=== PATIENT | male | born 1985 | race Two or more races ===

== ENCOUNTER 2017-01-07 01:42 | Emergency (ER) | payer MEDICAID ==
[~2017-01-07] VITALS: Ht 157.5 cm; Wt 65.8 kg
[2017-01-07] VITALS (10 sets, daily range): BP systolic 78–150; BP diastolic 33–88
[~2017-01-07 01:42] MED LIST: NKM
[2017-01-07] MEDS ORDERED: Silver Nitrate Stick TOPIC ONE (01:45)
[2017-01-07] MEDS ORDERED: Lidocaine 1% 10mg/ml/Epi 0.005mg/ml 30ml vial INJ ONE (01:45)
[2017-01-07 02:16] LABS: BASOPHILS % (AUTO) 1.6 % (0.0-2.0); EOSINOPHILS % (AUTO) 0.9 % (0.0-3.0); LYMPHOCYTES % (AUTO) 43.7 % (20.0-45.0); MEAN CORPUSCULAR HEMOGLOBIN 23.8 PG (27.0-31.0); MEAN CORPUSCULAR HGB CONC 30.5 G/DL (32.0-36.0); MEAN CORPUSCULAR VOLUME 78 FL (80-99); MONOCYTES % (AUTO) 10.9 % (1.0-10.0); NEUTROPHILS % (AUTO) 42.8 % (45.0-75.0); PLATELET COUNT 241 K/UL (150-450); RED BLOOD COUNT 3.51 M/UL (4.70-6.10); RED CELL DISTRIBUTION WIDTH 14.9 % (11.6-14.8); WHITE BLOOD COUNT 4.5 K/UL (4.8-10.8)
[2017-01-07 02:29] LABS: PROTHROMBIN TIME 10.7 SEC (9.30-11.50)
[2017-01-07 02:33] LABS: ALANINE AMINOTRANSFERASE 85 U/L (3-41); ALBUMIN/GLOBULIN RATIO 0.8 (1.0-2.7); ANION GAP 16 (5-15); ASPARTATE AMINO TRANSFERASE 172 U/L (5-40); CALCIUM 8.7 mg/dL (8.6-10.2); CARBON DIOXIDE 23 mEQ/L (20-30); CHLORIDE 102 mEQ/L (98-107); CREATININE 0.6 mg/dL (0.7-1.2); GLOMERULAR FILTRATION RATE > 60 mL/min (>60); HEMOLYSIS 0; POTASSIUM 3.6 mEQ/L (3.4-4.9); SODIUM 141 mEQ/L (135-145); TOTAL PROTEIN 8.8 g/dL (6.6-8.7)
--- NOTE | 2017-01-07 03:56 | Emergency Room Report ---
History of Present Illness General Chief Complaint: Nosebleed Source: Patient (Linden Augustin M.D.) Present Illness HPI Patient presents with several hours of R sided nose bleed. No trauma. Never has happened before. States lost "a lot" of blood. Feels weak when standing. Slight headache. Admits to alcohol 3 times a week. Had 4 beers tonight. Denies drugs. No trauma. No h/o HTN, cirrhosis, bleeding problems, easy bruising, rashes, vomit blood or melena. Denies problems with alcohol, seizures, gastritis. States only occasional ingestion. No fever. No cough. No diarrhea. No rashes. (Linden Augustin M.D.) Allergies: Coded Allergies: No Known Allergies (Unverified , 01/07/17) Patient History Past Medical History: see triage record Social History: Reports: alcohol use, Denies: drug use - see tox Social History Narrative at home Reviewed Nursing Documentation: PMH: Agreed, PSxH: Agreed (Linden Augustin M.D.) Nursing Documentation-PMH Past Medical History: No Stated History (Linden Augustin M.D.) Review of Systems All Other Systems: negative except mentioned in HPI (Linden Augustin M.D.) Physical Exam Vital Signs Date Time Temp Pulse Resp B/P Pulse Ox O2 Delivery O2 Flow Rate FiO2 01/07/17 01:34 105 18 153/91 98 Room Air 01/07/17 01:50 98.6 Sp02 EP Interpretation: reviewed, normal General Appearance: well appearing, no apparent distress, GCS 15 Head: normocephalic Eyes: bilateral eye PERRL, bilateral eye Scleral Injection ENT: other - bleeding R nose. No septal erosions. Source of bleeding not identified. Rhinophyma Neck: supple Respiratory: lungs clear, normal breath sounds Cardiovascular #1: regular rate, rhythm Cardiovascular #2: 2+ radial (R) Gastrointestinal: normal inspection, normal bowel sounds, non tender, no mass, non-distended Musculoskeletal: back normal, gait/station normal, normal range of motion Neurologic: alert, oriented x3 Psychiatric: depressed affect, other - not forthcoming with history Skin: normal inspection, warm/dry (Linden Augustin M.D.) Procedures Additional Procedure Procedure Narrative epistaxis control by me - Initially packed with lido and epi. Unable to stop bleeding. Rhinorocket inserted with ease and inflated. Bleeding controlled. Tolerated well. (Linden Augustin M.D.) Medical Decision Making Diagnostic Impression: Primary Impression: Severe epistaxis Additional Impressions: Anemia Qualified Codes: D62 - Acute posthemorrhagic anemia Alcohol intoxication Qualified Codes: F10.929 - Alcohol use, unspecified with intoxication, unspecified Cocaine abuse ER Course Patient with anterior epistaxis. Ddx: coagulopathy, vasculitis, trauma amongst othes. Needs labs and epistatxis control. Will pack with lido/epi on cotton. Initial packing not stop bleed. Rhinorocket inserted. Tolerated well. Bleeding controlled. Initial labs with anemia with microcytic indicies. Suggestive of more chronic blood loss. H/H minimally lower. However the patient was orthostatic and hypotensive when he sat and unable to stand. Fluids and blood ordered. Admit med. Discussed with Dr. Hartmann. States as bleeding controlled with Rhinorocket, patient stable for outpatient follow up and suggests [facility]. As unable to arrange ENT consultation, discussed with Dr. Robertson who will transfuse patient in ED and re-assess. Signed out to Dr. Robertson. Laboratory Tests Test 01/07/17 02:00 01/07/17 04:11 White Blood Count 4.5 K/UL (4.8-10.8) L 4.3 K/UL (4.8-10.8) L Red Blood Count 3.51 M/UL (4.70-6.10) L 3.32 M/UL (4.70-6.10) L Hemoglobin 8.3 G/DL (14.2-18.0) L 7.9 G/DL (14.2-18.0) L Hematocrit 27.3 % (42.0-52.0) L 25.9 % (42.0-52.0) L Mean Corpuscular Volume 78 FL (80-99) L 78 FL (80-99) L Mean Corpuscular Hemoglobin 23.8 PG (27.0-31.0) L 23.9 PG (27.0-31.0) L Mean Corpuscular Hemoglobin Concent 30.5 G/DL (32.0-36.0) L 30.7 G/DL (32.0-36.0) L Red Cell Distribution Width 14.9 % (11.6-14.8) H 14.8 % (11.6-14.8) Platelet Count 241 K/UL (150-450) 235 K/UL (150-450) Mean Platelet Volume 6.0 FL (6.5-10.1) L 6.3 FL (6.5-10.1) L Neutrophils (%) (Auto) 42.8 % (45.0-75.0) L % (45.0-75.0) Lymphocytes (%) (Auto) 43.7 % (20.0-45.0) % (20.0-45.0) Monocytes (%) (Auto) 10.9 % (1.0-10.0) H % (1.0-10.0) Eosinophils (%) (Auto) 0.9 % (0.0-3.0) % (0.0-3.0) Basophils (%) (Auto) 1.6 % (0.0-2.0) % (0.0-2.0) Prothrombin Time 10.7 SEC (9.30-11.50) Prothrombin Time INR 1.0 (0.9-1.1) PTT 27 SEC (23-33) Sodium Level 141 mEQ/L (135-145) Potassium Level 3.6 mEQ/L (3.4-4.9) Chloride Level 102 mEQ/L (98-107) Carbon Dioxide Level 23 mEQ/L (20-30) Anion Gap 16 (5-15) H Blood Urea Nitrogen 4 mg/dL (7-23) L Creatinine 0.6 mg/dL (0.7-1.2) L Estimate Glomerular Filtration Rate > 60 mL/min (>60) Glucose Level 107 mg/dL (74-106) H Calcium Level 8.7 mg/dL (8.6-10.2) Total Bilirubin 0.2 mg/dL (0.0-1.2) Aspartate Amino Transferase (AST) 172 U/L (5-40) H Alanine Aminotransferase (ALT) 85 U/L (3-41) H Alkaline Phosphatase 120 U/L (40-129) Total Protein 8.8 g/dL (6.6-8.7) H Albumin 4.1 g/dL (3.5-5.2) Globulin 4.7 g/dL Albumin/Globulin Ratio 0.8 (1.0-2.7) L Urine Opiates Screen Negative (NEGATIVE) Urine Barbiturates Screen Negative (NEGATIVE) Phencyclidine (PCP) Screen Negative (NEGATIVE) Urine Amphetamines Screen Negative (NEGATIVE) Urine Benzodiazepines Screen Negative (NEGATIVE) Urine Cocaine Screen Positive (NEGATIVE) H Urine Marijuana (THC) Screen Negative (NEGATIVE) Serum Alcohol 360 mg/dL Neutrophils % (Manual) Pending Lymphocytes % (Manual) Pending Platelet Estimate Pending Platelet Morphology Pending (Linden Augustin M.D.) ER Course Patient was advised risk and benefits of blood transfusion and indicated understanding and want proceed with transfusion. Patient was given blood transfusion. Patient had no recurrence of bleeding. The patient was noted to have improvement in his mental status as alcohol intoxication improved. The patient was noted to have improved hemoglobin a repeat testing. Patient showed no active bleeding during time in emergency department after a nasal packing was performed. Patient was given IV Zofran for vomiting the patient was advised to stop using cocaine and stop using excessive amounts of alcohol. The patient was advised to return for packing removal in one day Labs Test 01/07/17 02:00 01/07/17 04:11 01/07/17 13:40 Prothrombin Time 10.7 SEC (9.30-11.50) Prothromb Time International Ratio 1.0 (0.9-1.1) Activated Partial Thromboplast Time 27 SEC (23-33) Sodium Level 141 mEQ/L (135-145) Potassium Level 3.6 mEQ/L (3.4-4.9) Chloride Level 102 mEQ/L (98-107) Carbon Dioxide Level 23 mEQ/L (20-30) Anion Gap 16 (5-15) Blood Urea Nitrogen 4 mg/dL (7-23) Creatinine 0.6 mg/dL (0.7-1.2) Estimat Glomerular Filtration Rate > 60 mL/min (>60) Glucose Level 107 mg/dL (74-106) Calcium Level 8.7 mg/dL (8.6-10.2) Total Bilirubin 0.2 mg/dL (0.0-1.2) Aspartate Amino Transf (AST/SGOT) 172 U/L (5-40) Alanine Aminotransferase (ALT/SGPT) 85 U/L (3-41) Alkaline Phosphatase 120 U/L (40-129) Total Protein 8.8 g/dL (6.6-8.7) Albumin 4.1 g/dL (3.5-5.2) Globulin 4.7 g/dL Albumin/Globulin Ratio 0.8 (1.0-2.7) Urine Opiates Screen Negative (NEGATIVE) Urine Barbiturates Screen Negative (NEGATIVE) Phencyclidine (PCP) Screen Negative (NEGATIVE) Urine Amphetamines Screen Negative (NEGATIVE) Urine Benzodiazepines Screen Negative (NEGATIVE) Urine Cocaine Screen Positive (NEGATIVE) Urine Marijuana (THC) Screen Negative (NEGATIVE) Serum Alcohol 360 mg/dL Differential Total Cells Counted 100 Neutrophils % (Manual) 53 % (45-75) Lymphocytes % (Manual) 41 % (20-45) Monocytes % (Manual) 4 % (1-10) Eosinophils % (Manual) 1 % (0-3) Basophils % (Manual) 1 % (0-2) Band Neutrophils 0 % (0-8) Platelet Estimate Adequate Platelet Morphology Normal Hypochromasia 3+ Anisocytosis 1+ Microcytosis 1+ White Blood Count 4.6 K/UL (4.8-10.8) Red Blood Count 3.80 M/UL (4.70-6.10) Hemoglobin 9.5 G/DL (14.2-18.0) Hematocrit 30.8 % (42.0-52.0) Mean Corpuscular Volume 81 FL (80-99) Mean Corpuscular Hemoglobin 24.9 PG (27.0-31.0) Mean Corpuscular Hemoglobin Concent 30.8 G/DL (32.0-36.0) Red Cell Distribution Width 15.1 % (11.6-14.8) Platelet Count 188 K/UL (150-450) Mean Platelet Volume 6.1 FL (6.5-10.1) Neutrophils (%) (Auto) 68.2 % (45.0-75.0) Lymphocytes (%) (Auto) 18.0 % (20.0-45.0) Monocytes (%) (Auto) 11.4 % (1.0-10.0) Eosinophils (%) (Auto) 0.7 % (0.0-3.0) Basophils (%) (Auto) 1.7 % (0.0-2.0) (Fady Robertson) EKG Diagnostic Results Rate: normal Rhythm: NSR ST Segments: no acute changes (Linden Augustin M.D.) Rhythm Strip Diag. Results EP Interpretation: yes Rhythm: NSR, no PVC's, no ectopy (Linden Augustin M.D.) Status: improved (Linden Augustin M.D.) Status: improved (Fady Robertson) Disposition: HOME, SELF-CARE Condition: Improved Referrals: NOT CHOSEN IPA/,REFERRING (PCP) Linden Augustin M.D. Jan 07, 2017 03:56 Fady Robertson Jan 07, 2017 11:01
[2017-01-07] MEDS ORDERED: Cephalexin 500mg cap ORAL ONE (04:00)
[2017-01-07 04:24] LABS: MEAN CORPUSCULAR HEMOGLOBIN 23.9 PG (27.0-31.0); MEAN CORPUSCULAR HGB CONC 30.7 G/DL (32.0-36.0); MEAN CORPUSCULAR VOLUME 78 FL (80-99); MEAN PLATELET VOLUME 6.3 FL (6.5-10.1); PLATELET COUNT 235 K/UL (150-450); RED BLOOD COUNT 3.32 M/UL (4.70-6.10); RED CELL DISTRIBUTION WIDTH 14.8 % (11.6-14.8); WHITE BLOOD COUNT 4.3 K/UL (4.8-10.8)
[2017-01-07 07:44] LABS: ANISOCYTOSIS 1+; BAND NEUTROPHILS % (MANUAL) 0 % (0-8); BASOPHILS % (MANUAL) 1 % (0-2); EOSINOPHILS % (MANUAL) 1 % (0-3); HYPOCHROMASIA 3+; LYMPHOCYTES % (MANUAL) 41 % (20-45); MICROCYTES 1+; NEUTROPHILS % (MANUAL) 53 % (45-75); PLATELET ESTIMATE ADEQUATE; PLATELET MORPHOLOGY NORMAL; TOTAL CELLS COUNTED 100
[2017-01-07 13:52] LABS: BASOPHILS % (AUTO) 1.7 % (0.0-2.0); EOSINOPHILS % (AUTO) 0.7 % (0.0-3.0); MEAN CORPUSCULAR HEMOGLOBIN 24.9 PG (27.0-31.0); MEAN CORPUSCULAR HGB CONC 30.8 G/DL (32.0-36.0); MEAN CORPUSCULAR VOLUME 81 FL (80-99); MEAN PLATELET VOLUME 6.1 FL (6.5-10.1); MONOCYTES % (AUTO) 11.4 % (1.0-10.0); NEUTROPHILS % (AUTO) 68.2 % (45.0-75.0); PLATELET COUNT 188 K/UL (150-450); RED CELL DISTRIBUTION WIDTH 15.1 % (11.6-14.8); WHITE BLOOD COUNT 4.6 K/UL (4.8-10.8)
--- NOTE | 2017-01-07 16:01 | Cardiology Report ---
APPROVED REPORT EKG Measurement Heart [id number] Normal sinus rhythm Cannot rule out Anterior infarct, age undetermined Abnormal ECG
== END 2017-01-07 14:16 | disposition home or self-care (01) ==
LOC: EDBD 01:42 → EMR 01:50 → CANBEDREQ 07:44 → EMR 14:16
DX: R04.0 Epistaxis (principal); D62 Acute posthemorrhagic anemia; F10.929 Alcohol use, unspecified with intoxication, unspecified; F14.10 Cocaine abuse, uncomplicated; I95.9 Hypotension, unspecified
CPT/HCPCS: 30901; 36415; 80053; 80300; 80329; 85007; 85025; 85610; 85730; 86850; 86900; 86901; 86920; 93005; 96360; 96374; 96375; 99284; J2405; P9016